=== PATIENT | female | born 1995 | race African-American/Black ===

== ENCOUNTER 2016-08-22 18:03 | Emergency (ER) | payer MEDICAID, OTHER ==
[2016-08-22] MEDS ORDERED: IBUPROFEN 600 MG TABLET PO ONE (18:21)
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
[2016-08-22 19:18] VITALS: BP 128/64
== END 2016-08-22 19:14 | disposition home or self-care (01) ==
LOC: ER 18:03
DX: M54.5 Low back pain (principal); M79.601 Pain in right arm; V49.50XA Passenger injured in collision with unspecified motor vehicles in traffic accident, initial encounter; J45.909 Unspecified asthma, uncomplicated; Z88.8 Allergy status to other drugs, medicaments and biological substances; Z91.018 Allergy to other foods
CPT/HCPCS: 99284

== ENCOUNTER 2017-03-01 16:21 | Emergency (ER) | payer SELFPAY ==
[2017-03-01 16:39] VITALS: BP 136/92
--- NOTE | 2017-03-01 16:48 | ER Document Report ---
HPI - HPI Patient complains to provider of: tooth pain Pain Level: 5 Context: 21 yo female c/o pain to right upper and lower teeth x 1 day Associated Symptoms: None Exacerbated by: Food Relieved by: Denies Similar symptoms previously: No Recently seen / treated by doctor: No - ROS Systems Reviewed and Negative: Yes All other systems reviewed and negative - REPRODUCTIVE Reproductive: REPORTS: : - DERM Skin Color: Normal Past Medical History - General Information source: Patient - Social History Smoking Status: Never Smoker Frequency of alcohol use: None Drug Abuse: None Lives with: Family Family History: Reviewed & Not Pertinent - Past Medical History Cardiac Medical History: Reports: Hx Hypertension Pulmonary Medical History: Reports: Hx Asthma Renal/ Medical History: Denies: Hx Peritoneal Dialysis - Immunizations Immunizations up to date: Yes Hx Diphtheria, Pertussis, Tetanus Vaccination: Yes Vertical Provider Document - CONSTITUTIONAL Agree With Documented VS: Yes Exam Limitations: No Limitations General Appearance: WD/WN, No Apparent Distress - INFECTION CONTROL TRAVEL OUTSIDE OF THE [place] IN LAST 30 DAYS: No - HEENT HEENT: Atraumatic, PERRLA Mouth Diagram: 1 - pain 2 - pain Notes: no gingival edema, no abscess appreciated - NECK Neck: Normal Inspection, Supple - RESPIRATORY Respiratory: Breath Sounds Normal, No Respiratory Distress O2 Sat by Pulse Oximetry: 100 - CARDIOVASCULAR Cardiovascular: Regular Rate, Regular Rhythm - NEURO Level of Consciousness: Awake, Alert - DERM Integumentary: Warm, Dry Course - Re-evaluation Re-evalutation: 03/01/17 16:46 no sign of Alfredo's, no peritonsillar abscess, no airway compromise. pt stable for discharge - Vital Signs Vital signs: Temp Pulse Resp BP Pulse Ox 98.2 F 75 20 136/92 H 100 03/01/17 16:38 03/01/17 16:38 03/01/17 16:38 03/01/17 16:38 03/01/17 16:38 Discharge - Discharge Clinical Impression: Pain, dental Condition: Stable Disposition: HOME, SELF-CARE Instructions: Penicillin V K ([facility]), Toothache ([facility]), Ultram ([facility]) Additional Instructions: take medications as prescribed follow up dental for further evaluation and treatment Prescriptions: Penicillin V Potassium [Penicillin Vk 500 mg Tablet] 500 mg PO BID #20 tablet Tramadol HCl [Ultram 50 mg Tablet] 50 mg PO ASDIR PRN #20 tablet PRN Reason:
== END 2017-03-01 16:55 | disposition home or self-care (01) ==
LOC: ER 16:21
DX: O99.619 Diseases of the digestive system complicating pregnancy, unspecified trimester (principal); K08.89 Other specified disorders of teeth and supporting structures; O99.519 Diseases of the respiratory system complicating pregnancy, unspecified trimester; J45.909 Unspecified asthma, uncomplicated; O16.9 Unspecified maternal hypertension, unspecified trimester; Z3A.00 Weeks of gestation of pregnancy not specified
CPT/HCPCS: 99282

== ENCOUNTER → 2018-05-10 | Outpatient (CLI) | payer SELFPAY ==
--- NOTE | 2018-05-10 14:08 | RADIOLOGY REPORT (SQ) ---
EXAM DESCRIPTION: U/S [id number] TRNABD 1GES W/ODOP COMPLETED DATE/TIME: 05/10/2018 1:26 pm REASON FOR STUDY: Z34.81 ENCOUNTER FOR SUPRVSN OF NORMAL , FIRST TRIMESTER Z34.81 ENCOUNTE R FOR SUPRVSN OF NORMAL , FIRST TRIM COMPARISON: None. TECHNIQUE: Transabdominal static and realtime grayscale images acquired of the pelvis. Additional se lected spectral and color Doppler images recorded. All images stored on PACs. bHCG: Not available. CLINICAL DATES: LMP 03/08/2018. 9 weeks. LIMITATIONS: None. FINDINGS: FETUS: Single Living intrauterine . ULTRASOUND EGA: 8 weeks 6 days. ULTRASOUND ROBYN: 12/14/2018 EFW: Not applicable less than 20 weeks. CRL: 2.2 cm. FHR: 171 beats per minute. SURVEY: Too early to assess. AMNIOTIC FLUID: Adequate amount. PLACENTA: Not yet developed due to early gestation. SUBCHORIONIC BLEED: No SIZE OF BLEED: Not applicable. UTERUS: There is a 2.3 cm uterine fibroid. Uterus measures 10.4 x 8.1 x 7.9 cm. CERVICAL LENGTH: 3 cm. Closed. RIGHT ADNEXA: Normal ovary with normal vascular flow. 2.5 x 1.9 x 2 cm. No adnexal free fluid. No adnexal masses. LEFT ADNEXA: Normal ovary with normal vascular flow. 1.7 x 1.4 x 1.5 cm. No adnexal free fluid. No adnexal masses. FREE FLUID: None. OTHER: No other significant finding. IMPRESSION: There is a live intrauterine gestation of 8 weeks 6 days. A small uterine fibroid is id entified. Trimester of : First - 0 to 13 weeks. TECHNICAL DOCUMENTATION: JOB ID: [id number] [employer]- All Rights Reserved rev Reading location - IP/workstation name: [email or web address]
== END ==
LOC: RAD 17:06
PROVIDERS: ATTEND Nurse Practitioner
DX: O34.11 Maternal care for benign tumor of corpus uteri, first trimester (principal); D25.9 Leiomyoma of uterus, unspecified; Z3A.09 9 weeks gestation of pregnancy
CPT/HCPCS: 76801

== ENCOUNTER 2018-12-04 21:27 | Inpatient (IN) | payer MEDICAID ==
[2018-12-04] MEDS ORDERED: OXYTOCIN 10 UNIT/ML VIAL ONE (21:41)
[2018-12-04] MEDS ORDERED: LIDOCAINE 1% INJ-PF (10 MG/ML) 30 ML SDV ONE ×2 (21:41→23:04)
[2018-12-04] MEDS ORDERED: OXYTOCIN/NORMAL SALINE 20 UNIT/1,000 ML RTUINJ ONE (21:41)
[2018-12-04] MEDS ORDERED: MISOPROSTOL 0.2 MG TABLET ONE (21:41)
[2018-12-04] MEDS ORDERED: RINGERS SOLUTION,LACTATED 1,000 ML IV PRN (21:52)
--- NOTE | 2018-12-04 22:14 | Admission Physical ---
Datetime Report Generated by CPN: 12/04/2018 22:14 CURRENT ADMISSION Chief Complaint: Uterine Contractions Indication for Induction: Not Applicable Admit Impression : Term, Intrauterine ; Active Labor; Intact Membranes Admit Plan: Admit to Unit; Initiate Labor Protocol ALLERGIES Medication Allergies: zinc chloride/Hives (03/01/2017); benzocaine/Hives (03/01/2017); allantoin/Hives (03/01/2017); benzalkonium chloride/Hives (03/01/2017); carbamide peroxide/Hives (03/01/2017) OBSTETRICAL HISTORY EDC: 12/13/2018 00:00 : 2 Para: 1 Obstetrical History Comments: G1: 40 weeks 7 lbs 11 oz female vaginal PP HTN @ 2 mo G2: current- borderline macrosomia and poly GDM diet MEDICAL HISTORY Medical History Comments: allergies to orajel and nezocaine- had anasthesia consult INFECTIOUS HISTORY Infectious History Comments: + trich 12/5 neg JUDY 2/13 PHYSICAL EXAM General: Normal HEENT: Normal Neurologic: Normal Thyroid: Normal Heart: Normal Lungs: Normal Breast: Normal Back: Normal Abdomen: Normal Genitourinary Exam: Normal Extremities: Normal DTRs: Normal Pelvic Type: Adequate Vital Signs: Reviewed VAGINAL EXAM Dilatation: 9 Effacement: 100 Station: -1 Contraction Comments: q 2-3 min MEMBRANES Membranes: Intact FETUS A EGA: 38.5 Monitoring: External US FHR- Baseline: 120s Variability: Moderate 6-25bpm Accelerations: 15X15 Decelerations: None FHR Category: Category I Admit Comment: presented to L_D c/o ctx which started yesterday. Pt in active labor--cervix 9 cm. GBS Negative. INFORMED CONSENT Signature: with User ID: [email or web address]
[2018-12-04] MEDS ORDERED: IBUPROFEN 800 MG TABLET ONE (23:06)
[2018-12-04] MEDS ORDERED: ACETAMINOPHEN WITH CODEINE #3 TABLET ONE (23:06)
[2018-12-04] MEDS ORDERED: BENZOCAINE/MENTHOL AEROSOL SPRAY 56 ML TOP PRN (23:27)
[2018-12-04] MEDS ORDERED: ZOLPIDEM TARTRATE 5 MG TABLET PO PRN (23:27)
[2018-12-04] MEDS ORDERED: OXYTOCIN/NORMAL SALINE 20 UNIT/1,000 ML RTUINJ IV PRN (23:27)
[2018-12-04] MEDS ORDERED: DIPH/PERTUSS(ACELL)/TETANUS VAC/PF 0.5 ML SYR (>=10YO) IM PRN (23:27)
[2018-12-04] MEDS ORDERED: DIBUCAINE 1% OINTMENT 56 GM TP PRN (23:27)
[2018-12-04] MEDS ORDERED: ACETAMINOPHEN WITH CODEINE #3 TABLET PO PRN ×2 (23:27)
[2018-12-04 23:41] LABS: ABSOLUTE MONOCYTES (AUTO) 0.7 10^3/uL (0.1-1.4); ABSOLUTE NEUT (AUTO) 12.4 10^3/uL (1.7-8.2); BASOPHILS % (AUTO) 0.1 % (0-2); HEMOGLOBIN 9.4 g/dL (12.0-15.5); LYMPHOCYTES % (AUTO) 6.9 % (13-45); MEAN CORPUSCULAR HEMOGLOBIN 29.8 pg (27.0-33.4); MEAN CORPUSCULAR HGB CONC 32.4 g/dL (32.0-36.0); MEAN CORPUSCULAR VOLUME 92 fl (80-97); MONOCYTES % (AUTO) 4.8 % (3-13); PLATELET COUNT 234 10^3/uL (150-450); RED BLOOD COUNT 3.15 10^6/uL (3.72-5.28); RED CELL DISTRIBUTION WIDTH 14.3 % (11.5-14.0); SEGMENTED NEUTROPHILS % (AUTO) 88.2 % (42-78); TOTAL CELLS COUNTED % (AUTO) 100 %; WHITE BLOOD COUNT 14.1 10^3/uL (4.0-10.5)
--- NOTE | 2018-12-05 00:40 | Warning Signs in Babies ---
VOD Warning Signs Datetime Report Generated by [facility]: 12/05/2018 00:40 VOD#[id number] -Warning Signs in Babies: Needs to be viewed. (12/04/2018 21:27:Teresa Laws RN)
[2018-12-05] MEDS ORDERED: ONDANSETRON 4 MG TAB.RAPDIS ONE ×2 (01:05→01:06)
[2018-12-05] MEDS ORDERED: ONDANSETRON 4 MG TAB.RAPDIS PO ONE (01:30)
--- NOTE | 2018-12-05 01:38 | Delivery Summary ---
Del Sum A-C Datetime Report Generated by CPN: 12/05/2018 01:38 DELIVERY PERSONNEL DELIVERY PERSONNEL: [id number] Delivery Doctor:: Alie Ta MD Labor and Delivery Nurse:: Teresa Laws RN Labor and Delivery Nurse:: Ai Christensen RN Nursery Nurse:: Sonia Sierra RN Recyclable Materials Sorter/THREAD DRAWER: Ana Chris, ELECTROMYOGRAPHIC TECHNICIAN MATERNAL INFORMATION Delivery Anesthesia: None Medications During Delivery: cytotec 1000 mcg per rectum Medications After Delivery: Pitocin Bolus-Please Comment Meds After Delivery Comment: pitocin 20 units in 1000 ml NSSS Estimated Blood Loss (ml): 500 Maternal Complications: Precipitous Labor (<3hrs) Provider Comments: of a viable female @ 2227 w/ an OA presentation; APGARS 9, 9; bilateral 1 st degree periurethral lacs and 2nd degree vaginal lac LABOR SUMMARY EDC: 12/13/2018 00:00 No. Babies in Womb: 1 Attempted: No Labor Anesthesia: None LABOR INFORMATION Reason for Induction: Not Applicable Onset of Labor: 12/04/2018 20:00 Complete Dilatation: 12/05/2018 21:53 Oxytocin: N/A Group B Beta Strep: negative Antibiotics # of Doses: 0 Antibiotics Time of Last Dose: n/a Steroids Given: None Reason Steroids Not Administered: Not Applicable MEMBRANES Membranes Rupture Method: Artificial Rupture of Membranes: 12/04/2018 21:53 Length of Rupture (hr): 0.68 Amniotic Fluid Color: Clear Amniotic Fluid Amount: Moderate Amniotic Fluid Odor: Normal STAGES OF LABOR Stage 1 hr: 25 Stage 1 min: 53 Stage 2 hr: -23 Stage 2 min: -19 Stage 3 hr: 0 Stage 3 min: 6 Total Time in Labor hr: 2 Total Time in Labor min: 40 VAGINAL DELIVERY Episiotomy: None Laceration #1: Periurethral Laceration Extension #1: First Degree Laceration #2: Periurethral Laceration Extension #2: First Degree Laceration #3: Vaginal Laceration Extension #3: Second Degree Laceration Repair: Yes Laceration Repair Note: Bilateral periurethral lacs repaired w/ 3-0 Chromic; vaginal lac repaired w/3-0 Vicryl Sponge Count Correct: Yes Sharps Count Correct: Yes CSECTION DELIVERY Primary Indication: N/A Secondary Indication: N/A CSection Incidence: N/A Labor: N/A Elective: N/A CSection Incision: N/A BABY A INFORMATION Infant Delivery Date/Time: 12/04/2018 22:34 Method of Delivery: Vaginal Born in Route : No : N/A Forceps: N/A Vacuum Extraction: N/A Shoulder Dystocia : No PRESENTATION/POSITION BABY A Presentation: Cephalic Cephalic Presentation: Vertex Vertex Position: Left Occipital Anterior Breech Presentation: N/A PLACENTA INFORMATION BABY A Placenta Delivery Time : 12/04/2018 22:40 Placenta Method of Delivery: Spontaneous Placenta Status: Delivered SCORES BABY A Heart Rate 1 min: >100 bpm Resp Effort 1 min: Good Cry Reflex Irritability 1 min: Cough or Sneeze or Pulls Away Muscle Tone 1 min: Active Motion Color 1 min: Body [place], Extremities Blue SCORE 1 MIN: 9 Heart Rate 5 min: >100 bpm Resp Effort 5 min: Good Cry Reflex Irritability 5 min: Cough or Sneeze or Pulls Away Muscle Tone 5 min: Active Motion Color 5 min: Body [place], Extremities Blue SCORE 5 MIN: 9 INFANT INFORMATION BABY A Gestational Age at Delivery: 38.5 Gestational Status: Early Term- 37- 38.6 Weeks Outcome : Liveborn Infant Condition : Stable Infant Sex: Female IDENTIFICATION BABY A Infant Verification Date/Time: 12/04/2018 00:28 ID Band Number: [id number] Mother's Name Verified: Yes RN Verifying Infant: B. Ring RN and A. Chalman RN WEIGHT/LENGTH BABY A Birthweight (gm): 3898 Infant Weight (lb): 8 Weight (oz): 9 Infant Length (in): 20.75 Length (cm): 52.71 CORD INFORMATION BABY A No. Cord Vessels: 3 Nuchal Cord : N/A Cord Blood Taken: Yes-For Storage (Mom's Blood type +) Suction: Mouth; Nose ASSESSMENT BABY A Skin to Skin: No BABY B INFORMATION : N/A SIGNATURES Signature: with User ID: [email or web address]
[2018-12-05] MEDS ORDERED: HYDRALAZINE HCL INJ/PF 20 MG/1 ML SDV IV PRN ×2 (05:06→06:57)
[2018-12-05] MEDS: IBUPROFEN 800 MG TABLET PO SCH ×3 (06:19→21:33)
[2018-12-05] MEDS ORDERED: HYDRALAZINE HCL INJ/PF 20 MG/1 ML SDV IV ONE (07:15)
[2018-12-05 07:47] LABS: HEMATOCRIT 23.4 % (36.0-47.0); MEAN CORPUSCULAR HGB CONC 33.4 g/dL (32.0-36.0); MEAN CORPUSCULAR VOLUME 90 fl (80-97); PLATELET COUNT 208 10^3/uL (150-450); RED BLOOD COUNT 2.61 10^6/uL (3.72-5.28); RED CELL DISTRIBUTION WIDTH 14.6 % (11.5-14.0); WHITE BLOOD COUNT 12.8 10^3/uL (4.0-10.5)
[2018-12-05 07:49] LABS: HEMOGLOBIN 7.8 g/dL (12.0-15.5)
--- NOTE | 2018-12-05 09:27 | PDOC PROGRESS REPORT ---
Subjective-OB Progress Note for:: 12/05/18 Subjective: Doing well, holding baby, no c/o, bottle feeding Physical Exam (OB) Vital Signs: Temp Pulse Resp BP Pulse Ox 98.2 F 69 16 108/65 100 12/05/18 08:21 12/05/18 08:21 12/05/18 08:21 12/05/18 08:21 12/05/18 08:21 - PIH/Pre-Eclampsia DTR's: 2 + Clonus: Negative Headache: Absent Epigastric Pain: No Visual Changes: No - Lochia Lochia Amount: Small 10-25 ml Lochia Color: Rubra/Red - Abdomen Description: Tender, Soft Hernia Present: Yes Fundal Description: Firm, Midline Fundal Height: u/u - u/2 Objective-Diagnostic Laboratory: 12/05/18 07:14 12/04/18 12/04/18 12/05/18 23:32 23:32 07:14 WBC 14.1 H 12.8 H RBC 3.15 L 2.61 L Hgb 9.4 L 7.8 L Hct 29.0 L 23.4 L MCV 92 90 MCH 29.8 30.0 MCHC 32.4 33.4 RDW 14.3 H 14.6 H Plt Count 234 208 Seg Neutrophils % 88.2 H Lymphocytes % 6.9 L Monocytes % 4.8 Eosinophils % 0.0 Basophils % 0.1 Absolute Neutrophils 12.4 H Absolute Lymphocytes 1.0 Absolute Monocytes 0.7 Absolute Eosinophils 0.0 Absolute Basophils 0.0 Blood Type O POSITIVE Antibody Screen NEGATIVE Assessment and Plan(PN) - Assessment and Plan (1) Delivery normal Is this a current diagnosis for this admission?: Yes - Time Spent with Patient Time with patient: Less than 15 minutes Medications reviewed and adjusted accordingly: Yes - Disposition Anticipated Discharge: Home Within: within 24 hours
[2018-12-05] MEDS: FERROUS SULFATE 325 MG TABLET PO SCH ×2 (09:54→17:09)
[2018-12-05] MEDS: PRENATAL VITAMIN W DHA CAPSULE PO SCH (09:54)
[2018-12-05] MEDS: SENNOSIDES/DOCUSATE 8.6-50 MG 1 EACH TABLET PO SCH (09:54)
[2018-12-05] MEDS: DOCUSATE SODIUM 100 MG CAPSULE PO SCH ×2 (09:54→17:09)
[2018-12-05 11:50] LABS: APPEARANCE,URINE CLOUDY; BILIRUBIN,URINE NEGATIVE (NEGATIVE); COLOR,URINE RED; GLUCOSE, URINE NEGATIVE (NEGATIVE); KETONES,URINE NEGATIVE (NEGATIVE); LEUKOCYTE ESTERASE,URINE MODERATE (NEGATIVE); NITRITE,URINE NEGATIVE (NEGATIVE); PROTEIN,URINE 100 mg/dL (NEGATIVE); URINE SPECIFIC GRAVITY 1.014; UROBILINOGEN,URINE NEGATIVE mg/dL (<2.0)
[2018-12-05 12:04] LABS: URINE AMPHETAMINES SCREEN NEGATIVE; URINE BARBITURATES SCREEN NEGATIVE; URINE BENZODIAZEPINES SCREEN NEGATIVE; URINE COCAINE SCREEN NEGATIVE; URINE MARIJUANA (THC) SCREEN NEGATIVE; URINE METHADONE SCREEN NEGATIVE; URINE PHENCYCLIDINE SCREEN NEGATIVE
[2018-12-06] MEDS: IBUPROFEN 800 MG TABLET PO SCH ×2 (06:05→14:44)
[2018-12-06 08:27] VITALS: BP 103/64
[2018-12-06] MEDS: FERROUS SULFATE 325 MG TABLET PO SCH (09:31)
[2018-12-06] MEDS: DOCUSATE SODIUM 100 MG CAPSULE PO SCH (09:31)
[2018-12-06] MEDS: SENNOSIDES/DOCUSATE 8.6-50 MG 1 EACH TABLET PO SCH (09:31)
[2018-12-06] MEDS: PRENATAL VITAMIN W DHA CAPSULE PO SCH (09:31)
--- NOTE | 2018-12-06 11:32 | PDOC DISCHARGE SUMMARY ---
Final Diagnosis Discharge Date: 12/06/18 - Final Diagnosis (1) Periurethral abrasion, delivered, current hospitalization Is this a current diagnosis for this admission?: Yes (2) Second degree laceration of perineum, delivered, current hospitalization Is this a current diagnosis for this admission?: Yes (3) Delivery normal Is this a current diagnosis for this admission?: Yes Discharge Data - Discharge Medication Prescriptions: Ibuprofen [Motrin 800 mg Tablet] 800 mg PO Q8HP PRN #60 tablet PRN Reason: Home Medications: Doxylamine Succinate/Vit B6 [Darrin Samano 10-10 mg Tablet] 1 each PO ASDIR #40 tablet. 11/10/15 No.116/Iron/Folic/Dha [Expecta Combo Pack] 1 tab PO DAILY 05/28/16 Ferrous Sulfate [Feosol 325 mg Tablet] 325 mg PO BID tablet 12/06/18 Ibuprofen [Motrin 800 mg Tablet] 800 mg PO Q8HP PRN #60 tablet 12/06/18 Procedures: NST Intrapartum Procedure(s): Spontaneous Vaginal Delivery Complication(s): Laceration-Perineal Laceration-Degree: 2nd - Diagnosis Test Laboratory: Temp Pulse Resp BP Pulse Ox 98.1 F 92 18 103/64 98 12/06/18 07:31 12/06/18 07:31 12/06/18 07:31 12/06/18 07:31 12/06/18 07:31 12/04/18 12/05/18 12/05/18 23:32 07:14 11:20 RBC 3.15 L 2.61 L Hgb 9.4 L 7.8 L Hct 29.0 L 23.4 L Urine Opiates Screen UNCONFIRMED POSITIVE - Discharge information/Instructions Discharge Activity: Balance Activity w/Rest, Pelvic Rest Discharge Diet: Regular Disposition: HOME, SELF-CARE Follow up with: [facility] in: 4, Weeks
--- NOTE | 2018-12-06 16:30 | Progress Note ---
Provider Note Provider Note: on rounds, pt denied sx of anemia-no dizziness, heart palpitations, headache, ringing in the ears. declines blood transfusion.
== END 2018-12-06 15:42 | disposition home or self-care (01) | DRG 806 ==
LOC: LC 21:27 → LR 21:45 → 2S 12-05 01:11
PROVIDERS: ADMIT Obstetrics & Gynecology; ATTEND Obstetrics & Gynecology
PROC: 10E0XZZ Delivery of Products of Conception, External Approach (ICD-10-PCS; principal; 2018-12-04)
PROC: 0UQMXZZ Repair Vulva, External Approach (ICD-10-PCS; 2018-12-04)
PROC: 0UQGXZZ Repair Vagina, External Approach (ICD-10-PCS; 2018-12-04)
DX: O62.3 Precipitate labor (principal); O71.4 Obstetric high vaginal laceration alone; Z37.0 Single live birth; O24.420 Gestational diabetes mellitus in childbirth, diet controlled; O40.3XX0 Polyhydramnios, third trimester, not applicable or unspecified; O36.63X0 Maternal care for excessive fetal growth, third trimester, not applicable or unspecified; O71.82 Other specified trauma to perineum and vulva; Z3A.38 38 weeks gestation of pregnancy
CPT/HCPCS: 36415; 59025; 80307; 81005; 85025; 85027; 86592; 86850; 86900; 86901; J2590; J3490; S0119

== ENCOUNTER 2020-06-15 19:19 | Emergency (ER) | payer SELFPAY ==
--- NOTE | 2020-06-15 20:42 | ER Document Report ---
HPI - HPI Time Seen by Provider: 06/15/20 20:37 Pain Level: 2 Context: Patient is a 25-year-old female who presents emergency department with a chief complaint of the bleeding keloid area. She states that the area had burst did earlier today. It would not stop bleeding. It has stopped bleeding here in the emergency department while waiting. She denies any fever, body aches, or chills. Denies any purulent drainage from the area. - ROS Systems Reviewed and Negative: Yes All other systems reviewed and negative - CONSTITUTIONAL Constitutional: DENIES: Fever, Chills - REPRODUCTIVE Reproductive: REPORTS: : - MUSCULOSKELETAL Musculoskeletal: DENIES: Extremity pain - DERM Skin Color: Other - Bleeding keloid on left back Past Medical History - Social History Smoking Status: Never Smoker Family History: Reviewed & Not Pertinent - Past Medical History Cardiac Medical History: Reports: Hx Hypertension Pulmonary Medical History: Reports: Hx Asthma Renal/ Medical History: Denies: Hx Peritoneal Dialysis - Immunizations Immunizations up to date: Yes Hx Diphtheria, Pertussis, Tetanus Vaccination: Yes Vertical Provider Document - CONSTITUTIONAL Agree With Documented VS: Yes Exam Limitations: No Limitations General Appearance: No Apparent Distress - INFECTION CONTROL TRAVEL OUTSIDE OF THE [place] IN LAST 30 DAYS: No - HEENT HEENT: Atraumatic, Normocephalic, PERRLA - NECK Neck: Normal Inspection - RESPIRATORY Respiratory: Breath Sounds Normal, No Respiratory Distress - CARDIOVASCULAR Cardiovascular: Regular Rate, Regular Rhythm Pulses: Normal: Radial - MUSCULOSKELETAL/EXTREMETIES Musculoskeletal/Extremeties: FROM - NEURO Level of Consciousness: Awake, Alert, Appropriate Motor/Sensory: No Motor Deficit, No Sensory Deficit - DERM Integumentary: Warm, Dry Adult Front & Back Diagram: 1 - Keloid with small amount of the bleeding. Notes: Abrasion to keloid noted to left back. See diagram Course - Re-evaluation Re-evalutation: 06/15/20 20:42 It appears that maybe the patient had a blister on her keloid that had burst di d. The bleeding had stopped. Advised her to apply triple antibiotic ointment. Also advised her to follow-up with dermatology when she gets insurance. She is in agreement with this plan. Follow-up precautions were given. Verbal discharge instructions were given to the patient. They verbalized understanding. They are stable for discharge. - Vital Signs Vital signs: Temp Pulse Resp BP Pulse Ox 98.3 F 81 16 133/89 H 100 06/15/20 20:10 06/15/20 20:10 06/15/20 20:10 06/15/20 20:10 06/15/20 20:10 Discharge - Discharge Clinical Impression: Skin problem Condition: Stable Disposition: HOME, SELF-CARE Additional Instructions: You were seen today in the emergency department for your weekly bleeding. The bleeding had stopped with the dressing in place. Apply triple antibiotic to the keloid area twice a day. Keep it clean and dry. When you get insurance, I recommend you follow-up with dermatology to have a keloid evaluated. In the meantime, you can follow-up with [facility] or [facility] as needed. Referrals: GINA HEIN APRN [Primary Care Provider] - Follow up as needed [facility] [Provider Group] - Follow up as needed [facility] [Provider Group] - Follow up as needed
[2020-06-15 20:50] VITALS: BP 128/80
== END 2020-06-15 20:46 | disposition home or self-care (01) ==
LOC: ER 19:19
DX: L91.0 Hypertrophic scar (principal)
CPT/HCPCS: 99282